=== PATIENT | male | born 1945 | race African-American/Black ===

== ENCOUNTER 2016-07-18 05:36 | Day surgery (SDC) | payer OTHER, MEDICARE ==
[~2016-07-18] VITALS: Ht 180.3 cm; Wt 106.6 kg
--- NOTE | ~2016-07-18 | EKG ---
[address] [address] ELECTROCARDIOGRAM REPORT Name: BRINA WOO Room #: 150-3 [facility].#: [id number] Admission: 07/18/16 Attend Phys: Iraj Oneal MD Discharge: Date of : 49 Report #: [id number] THIS REPORT FOR: //name// [facility] Test Date: 2016-07-18 Test Time: 07:25:33 Pat Name: BRINA WOO Department: Room: 150 3 Gender: M Core Feeder: VIDAL : 1945 Requested By: Iraj Oneal Order Number: [id number] MD: Sky Adams Measurements Intervals [place] Rate: 51 P: 18 TX: 161 QRS: -18 QRSD: 105 T: -7 QT: 421 QTc: 388 Interpretive Statements Sinus rhythm Probable left ventricular hypertrophy Nonspecific T wave abnormality No previous ECG available for comparison Electronically Signed On 07-18-2016 8:49:21 CDT by Sky Adams [email or web address] <ELECTRONICALLY SIGNED> By: Sky Adams MD, [facility] 07/18/16 0849 0725 0725 Sky Adams MD, FACC /EPI
--- NOTE | ~2016-07-18 | O ---
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 POSTOPERATIVE DIAGNOSIS: Left true vocal cord mass, path pending. PROCEDURE: Microdirect laryngoscopy with biopsy of left vocal cord mass. SURGEON: Iraj Oneal M.D. ANESTHESIA: General oral endotracheal. INDICATIONS: See the patient's H and P. FINDINGS: Moderate size exophytic mass located on the dorsal surface of the anterior third of the left true vocal cord was noted. The remainder of the laryngeal exam was normal. TECHNIQUE: After obtaining consent, the patient was brought to the operating suite, appropriate time out was performed. General oral endotracheal anesthesia was obtained via anesthesia and maintained throughout the case. The bed was turned 90 degrees. The upper dentition was protected with a plastic mouthguard throughout the case. Dentition was intact and without damage at the end of the procedure. Palpation of the neck was unremarkable. Palpation of the oropharynx digitally was normal. A Dedo laryngoscope was used, introduced into oral cavity and advanced to the oropharynx into the hypopharynx. The lingual and laryngeal surface of the epiglottis were unremarkable. The postcricoid space appeared normal. The scope was advanced through the false cords to identify the true vocal cords in the ventricle region. Upon visualization of the mass, a Lewy suspension device was applied to the laryngoscope and put in suspension on a [place] stand for remainder of the case. The operating scope was brought into the field for visualization of the mass. Pre-biopsy pictures were obtained. The mass was easily localized bulging medially into the airway near the anterior commissure. Using a straight and upbiting in a left curved cut forceps, the mass was first biopsied in piecemeal fashion, then used a curved scissors to amputate the base as close as possible to this portion of the vocal cord. Upon removal of the mass, hemostasis was obtained by using adrenaline on 1:100,000 on half by half cottonoids. After cooling for several minutes, they were removed, hemostasis seemed well maintained. There is no vocal cord edema noted. Post-biopsy photos were obtained. He was then returned to anesthesia [address] [address] OPERATIVE REPORT Name: BRINA WOO Room #: DEP [facility].#: [id number] Admission: 07/18/16 Attend Phys: Iraj Oneal MD Discharge: 07/18/16 Date of : 49 Report #: [id number] and allowed to awaken from anesthesia under safe condition. He was taken to recovery room in good condition. ESTIMATED BLOOD LOSS: 2 mL. By: [id number] Iraj Oneal MD /cornell
--- NOTE | ~2016-07-18 | H ---
[facility] Dash Arshad[place] [address] HISTORY AND PHYSICAL Name: BRINA WOO Room #: 150-3 [facility] M.R.#: [id number] Admission: 07/18/16 Attend Phys: Iraj Oneal MD Discharge: Date of : 49 Report #: [id number] THIS REPORT FOR: //name// CC: Iraj Nuñez DATE OF SERVICE: 07/17/2016 ANTICIPATED DATE OF SURGERY: 07/18/2016. CHIEF COMPLAINT: Laryngeal mass. HISTORY OF PRESENT ILLNESS: The patient is a 71-year-old gentleman who presented to the office with a concern regarding a voicing change. He noted the voicing change for the better part over the last 8-12 months and he tried Protonix for over 3 months, without any voicing changes, but did have resolution of some abnormal pain. He noted with excessive voice use, his voice progressively worsens. PHYSICAL EXAMINATION: With a flexible laryngoscope, there was noted to be a small exophytic mass on the medial edge of the left anterior true vocal cord dorsal surface with hypervascular changes noted surrounding this mass. The remainder of the vocal cords appeared unremarkable. Based on the findings of nearly a year-long voice change with persistent mass noted on the vocal cord, I recommended direct laryngoscopy with microscopic biopsy and removal of the mass for another pathological diagnosis with potential improvement in his voice. I discussed the risks and benefits of the procedure with him and he agrees to proceed forward. ALLERGIES TO MEDICATION: None. MEDICATIONS ON ADMISSION: Amlodipine/benazepril 10/20 mg once a day, aspirin 81 mg once a day, finasteride 5 mg once a day, indapamide 1.25 mg tablet once a day, losartan 100 mg once a day, pantoprazole 40 mg once a day and terazosin 5 mg once a day. PAST MEDICAL AND PAST SURGICAL HISTORY: Notable for previous adenotonsillectomy, history of essential hypertension and gastroesophageal reflux disease. FAMILY HISTORY: Noncontributory for any pertinent abnormalities. REVIEW OF SYSTEMS: Negative at this time for any GI, , cardiovascular or pulmonary issues. [facility] [address] [place] [address] HISTORY AND PHYSICAL Name: BRINA WOO Room #: 150-3 [facility]..#: [id number] Admission: 07/18/16 Attend Phys: Iraj Oneal MD Discharge: Date of : 49 Report #: [id number] PHYSICAL EXAMINATION: GENERAL: A gentleman who appears his stated age. His height and weight are proportional. HEENT: As noted above, with the addition of the tonsils being surgically absent. NECK: The neck palpates without any physical abnormalities. CHEST: Clear. CARDIOVASCULAR: Regular rhythm, regular rate. ASSESSMENT: History of laryngeal mass. PLAN: Plan will be for micro-direct laryngoscopy with biopsy under general anesthesia. <ELECTRONICALLY SIGNED> By: Iraj Oneal MD 07/18/16 0756 1242 1305 Iraj Oneal MD /corn[place]
--- NOTE | ~2016-07-18 | S ---
[facility] [place] [address] SURGICAL PATH RPT PROCEDURE Name: BRINA WOO Room #: DEP [facility] M.R.#: [id number] Admission: 07/18/16 Date of : 49 Discharge: 07/18/16 Report #: [id number] Path Case #: [id number] PATHOLOGY REPORT COLLECTION DATE: 07/18/2016 RECEIVED DATE: 07/18/2016 SUBMITTING PHYS: Dr. Iraj Oneal OTHER PHYS: Dr. Braulio Nuñez Jr. SPECIMEN(S) RECEIVED: A.Left vocal cord lesion * * * * * * * * * * * * FINAL DIAGNOSIS: Vocal cord lesion, left, biopsy: - Compatible with a vocal cord polyp, telangiectatic type. - Negative for dysplasia or malignancy. (IUV:csd; d/t: 07/21/2016) PATHOLOGIST: Maegan Tong M.D. REPORT ELECTRONICALLY SIGNED BY: Maegan Tong M.D. DATE/TIME: 07/21/2016 15:18 * * * * * * * * * * * * GROSS PATHOLOGY: The specimen is received in formalin, labeled "Brina Woo, left vocal cord lesion." Received are multiple segments of white-martinez to red-brown soft tissue measuring 2.0 x 0.4 x 0.3 cm in aggregate dimensions. The specimen is filtered and submitted entirely in cassette A1. (KAH; 07/18/2016) CLINICAL HISTORY: Lesion vocal cord INITIAL CPT CODE(S): A; 87507 Professional services performed by [facility] at [facility] [address] [place] [address] Technical services performed by [facility] at [address] [place] [id number]. [facility] [address] [place] [address] SURGICAL PATH RPT PROCEDURE Name: BRINA WOO Room #: DEP [facility]#: [id number] Admission: 07/18/16 Date of : 49 Discharge: 07/18/16 Report #: [id number] Path Case #: [id number] [facility] [address] [place] [id number] PHONE: [phone] DIRECTOR: Musa Quezada M.D. * * * END OF REPORT * * *
[~2016-07-18 05:36] MED LIST: AMLODIPINE-BEN1 EACH PO; ASPIR 8181 M1 PO; GARLIC1 EACH PO; HYTRIN 5 M5 MG/1 CAP PO; INDAPAMIDE1.25 MG PO; INDAPAMIDE2.5 MG PO; KLOR-CON 1010 MEQ PO; LOSARTAN POTAS100 MG PO; PROSCAR 5MG TABL5 MG PO; PROTONIX40 M1 PO; SILDENAFIL20 MG PO
[2016-07-18 08:06] LABS: CALCIUM 8.4 mg/dL (8.5-10.1); CREATININE 1.2 mg/dL (0.7-1.3); POTASSIUM 3.1 mmol/L (3.5-5.1)
== END 2016-07-18 09:57 | disposition home or self-care (01) ==
LOC: OR 05:36 → TBA 05:36 → OR 09:57
PROVIDERS: Otolaryngology
DX: J38.3 Other diseases of vocal cords (principal)
CPT/HCPCS: 50010; 50101; 50426; 62110; 62900; 70005